=== PATIENT | female | born 1990 | race Caucasian/White ===

== ENCOUNTER → 2018-01-03 | Outpatient (CLI) | payer OTHER ==
[~2018-01-03] MED LIST: BIRTH CONTROL; Bactrim 400-801 EACH PO; Bactrim Ds Tab1 EACH PO; CEPH500 PO; IBUP800 PO; OXYACE5T PO; Pyridium200 MG PO; Zofran Odt4 MG SL
== END ==
LOC: LAB 15:31 → LAB SHORT 15:31
DX: R30.0 Dysuria (principal)
CPT/HCPCS: 87077; 87086; 87186

== ENCOUNTER → 2018-03-19 | Outpatient (CLI) | payer OTHER ==
[2018-03-22 00:11] LABS: CHLAMYDIA TRACHOMATIS, NAA Negative (Negative); NEISSERIA GONORRHOEAE, NAA Negative (Negative)
== END | disposition home or self-care (01) ==
LOC: LAB 15:08 → LAB SHORT 15:08
PROVIDERS: Obstetrics & Gynecology
DX: Z34.83 Encounter for supervision of other normal pregnancy, third trimester (principal); Z3A.35 35 weeks gestation of pregnancy
CPT/HCPCS: 87081; 87653

== ENCOUNTER → 2018-04-10 | Outpatient (CLI) | payer OTHER | END | disposition home or self-care (01) | LOC: LAB 13:27 → LAB SHORT 13:27 | DX: R30.0 Dysuria (principal) | CPT/HCPCS: 87086 ==

== ENCOUNTER 2018-04-19 03:06 | Inpatient (IN) | payer OTHER ==
[~2018-04-19] VITALS: Ht 162.6 cm; Wt 66.2 kg
[2018-04-19 06:11] LABS: BASOPHILS ABSOLUTE AUTO 0.02 K/mm3 (0.00-0.23); BASOPHILS PERCENT AUTO 0 % (0-2); EOSINOPHILS ABSOLUTE AUTO 0.06 K/mm3 (0.00-0.68); EOSINOPHILS PERCENT AUTO 1 % (0-6); Hematocrit 31.8 % (33.0-51.0); Hemoglobin 10.4 g/dL (11.5-16.0); IMMATURE GRAN PERCENT AUTO 1 % (0-1); LYMPHOCYTES ABSOLUTE AUTO 2.19 K/mm3 (0.84-5.20); LYMPHOCYTES PERCENT AUTO 18 % (21-46); MONOCYTES ABSOLUTE AUTO 0.65 K/mm3 (0.16-1.47); MONOCYTES PERCENT AUTO 5 % (4-13); Mean Corpuscular HGB 29.4 pg (26.0-34.0); Mean Corpuscular HGB Conc 32.7 g/dL (31.5-36.5); Mean Corpuscular Volume 90 fL (80-100); Mean Platelet Volume 10.3 fL (9.1-12.4); NEUTROPHILS PERCENT AUTO 75 % (41-73); Platelet Count 270 K/mm3 (150-400); RDW Coefficient Variation 12.6 % (11.7-14.2); RDW Standard Deviation 41.7 fL (35.1-46.3); Red Blood Cell Count 3.54 M/mm3 (3.80-5.20); White Blood Cell Count 12.22 K/mm3 (4.00-11.30)
[2018-04-19] MEDS ORDERED: Verotin-Gr Cap1 EACH PO (08:10)
[2018-04-20 05:07] LABS: BASOPHILS ABSOLUTE AUTO 0.03 K/mm3 (0.00-0.23); BASOPHILS PERCENT AUTO 0 % (0-2); EOSINOPHILS ABSOLUTE AUTO 0.13 K/mm3 (0.00-0.68); EOSINOPHILS PERCENT AUTO 1 % (0-6); Hemoglobin 9.7 g/dL (11.5-16.0); IMMATURE GRAN PERCENT AUTO 1 % (0-1); LYMPHOCYTES ABSOLUTE AUTO 2.98 K/mm3 (0.84-5.20); LYMPHOCYTES PERCENT AUTO 25 % (21-46); MONOCYTES ABSOLUTE AUTO 1.12 K/mm3 (0.16-1.47); MONOCYTES PERCENT AUTO 9 % (4-13); Mean Corpuscular HGB 29.8 pg (26.0-34.0); Mean Corpuscular HGB Conc 32.3 g/dL (31.5-36.5); Mean Corpuscular Volume 92 fL (80-100); Mean Platelet Volume 10.2 fL (9.1-12.4); NEUTROPHILS ABSOLUTE AUTO 7.72 K/mm3 (1.96-9.15); NEUTROPHILS PERCENT AUTO 64 % (41-73); Platelet Count 249 K/mm3 (150-400); RDW Coefficient Variation 12.9 % (11.7-14.2); RDW Standard Deviation 43.1 fL (35.1-46.3); Red Blood Cell Count 3.25 M/mm3 (3.80-5.20); White Blood Cell Count 12.08 K/mm3 (4.00-11.30)
[2018-04-20] MEDS ORDERED: DOCU100 PO (08:04)
[2018-04-20] MEDS ORDERED: IBUP800 PO (08:05)
== END 2018-04-20 13:15 | disposition home or self-care (01) | DRG 775 ==
LOC: BC 03:06 → OBS 03:06 → BC 04:45
PROVIDERS: Obstetrics & Gynecology
PROC: 10E0XZZ Delivery of Products of Conception, External Approach (ICD-10-PCS; principal; 2018-04-19)
PROC: 0HQ9XZZ Repair Perineum Skin, External Approach (ICD-10-PCS; 2018-04-19)
DX: O62.3 Precipitate labor (principal); Z3A.40 40 weeks gestation of pregnancy; Z37.0 Single live birth
CPT/HCPCS: 36415; 59025; 85025; J1885; J2210; J2590; J7120

== ENCOUNTER 2018-11-18 14:04 | Emergency (ER) | payer OTHER ==
[~2018-11-18] VITALS: Ht 162.6 cm; Wt 56.7 kg
[~2018-11-18 14:04] MED LIST changes: +DOCU100 PO; +Verotin-Gr Cap1 EACH PO
[2018-11-18 16:02] LABS: BASOPHILS ABSOLUTE AUTO 0.05 K/mm3 (0.00-0.23); BASOPHILS PERCENT AUTO 1 % (0-2); EOSINOPHILS ABSOLUTE AUTO 0.31 K/mm3 (0.00-0.68); EOSINOPHILS PERCENT AUTO 5 % (0-6); Hematocrit 45.3 % (33.0-51.0); Hemoglobin 14.7 g/dL (11.5-16.0); IMMATURE GRAN ABSOLUTE AUTO 0.02 K/mm3 (0.00-0.10); IMMATURE GRAN PERCENT AUTO 0 % (0-1); LYMPHOCYTES ABSOLUTE AUTO 2.05 K/mm3 (0.84-5.20); LYMPHOCYTES PERCENT AUTO 33 % (21-46); MONOCYTES ABSOLUTE AUTO 0.37 K/mm3 (0.16-1.47); MONOCYTES PERCENT AUTO 6 % (4-13); Mean Corpuscular HGB Conc 32.5 g/dL (31.5-36.5); Mean Corpuscular Volume 89 fL (80-100); Mean Platelet Volume 9.9 fL (9.1-12.4); NEUTROPHILS ABSOLUTE AUTO 3.39 K/mm3 (1.96-9.15); NEUTROPHILS PERCENT AUTO 55 % (41-73); Platelet Count 332 K/mm3 (150-400); RDW Coefficient Variation 12.7 % (11.7-14.2); RDW Standard Deviation 41.2 fL (35.1-46.3); Red Blood Cell Count 5.07 M/mm3 (3.80-5.20); White Blood Cell Count 6.19 K/mm3 (4.00-11.30)
[2018-11-18 16:36] LABS: International Normalized Ratio 1.03; Prothrombin Time Results 10.9 Sec (9.7-11.5)
[2018-11-18] MEDS ORDERED: Prednisone20 MG PO (16:47)
[2018-11-18] MEDS ORDERED: HYDHCL25 PO (16:47)
== END 2018-11-18 16:49 | disposition home or self-care (01) ==
LOC: ER 14:04
PROVIDERS: Physician Assistant
DX: R21 Rash and other nonspecific skin eruption (principal)
CPT/HCPCS: 36415; 85025; 85384; 85610; 85651; 99283; Q0163

== ENCOUNTER → 2019-06-19 | Outpatient (CLI) | payer OTHER ==
[~2019-06-19] MED LIST changes: +HYDHCL25 PO; +Prednisone20 MG PO
== END | disposition home or self-care (01) ==
LOC: LAB 17:36 → LAB SHORT 17:36
PROVIDERS: Obstetrics & Gynecology
DX: Z01.419 Encounter for gynecological examination (general) (routine) without abnormal findings (principal)
CPT/HCPCS: G0123

== ENCOUNTER 2020-01-03 18:06 | Emergency (ER) | payer OTHER ==
[~2020-01-03] VITALS: Ht 165.1 cm; Wt 65.8 kg
[2020-01-03] MEDS ORDERED: ALBU90OI INH (19:49)
[2020-01-03] MEDS ORDERED: AZIT500 PO (19:49)
== END 2020-01-03 20:04 | disposition home or self-care (01) ==
LOC: ER 18:06
DX: J45.909 Unspecified asthma, uncomplicated (principal)
CPT/HCPCS: 71046; 94640; 99283-25

== ENCOUNTER 2020-07-11 17:40 | Emergency (ER) | payer OTHER ==
[~2020-07-11] VITALS: Ht 162.6 cm; Wt 65.8 kg
[~2020-07-11 17:40] MED LIST changes: +ALBU90OI INH; +AZIT500 PO
[2020-07-11] MEDS ORDERED: BIRTH CONTROL (17:50)
[2020-07-11 18:42] LABS: Source, Urine Clean Catch
[2020-07-11 18:47] LABS: BASOPHILS ABSOLUTE AUTO 0.05 K/mm3 (0.00-0.23); BASOPHILS PERCENT AUTO 1 % (0-2); EOSINOPHILS ABSOLUTE AUTO 0.27 K/mm3 (0.00-0.68); EOSINOPHILS PERCENT AUTO 4 % (0-6); Hematocrit 41.3 % (33.0-51.0); Hemoglobin 13.7 g/dL (11.5-16.0); IMMATURE GRAN ABSOLUTE AUTO 0.02 K/mm3 (0.00-0.10); IMMATURE GRAN PERCENT AUTO 0 % (0-1); LYMPHOCYTES ABSOLUTE AUTO 2.64 K/mm3 (0.84-5.20); LYMPHOCYTES PERCENT AUTO 35 % (21-46); MONOCYTES ABSOLUTE AUTO 0.48 K/mm3 (0.16-1.47); MONOCYTES PERCENT AUTO 6 % (4-13); Mean Corpuscular HGB 31.4 pg (26.0-34.0); Mean Corpuscular HGB Conc 33.2 g/dL (31.5-36.5); Mean Corpuscular Volume 95 fL (80-100); Mean Platelet Volume 10.5 fL (9.1-12.4); NEUTROPHILS ABSOLUTE AUTO 4.04 K/mm3 (1.96-9.15); NEUTROPHILS PERCENT AUTO 54 % (41-73); Platelet Count 367 K/mm3 (150-400); RDW Standard Deviation 41.9 fL (35.1-46.3); Red Blood Cell Count 4.36 M/mm3 (3.80-5.20)
[2020-07-11 18:54] LABS: Bilirubin, Urine Neg (Neg); Blood, Urine 2+ (Neg); Glucose Qualitative, Urine Neg (Neg); Ketones, Urine Neg (Neg); Leukocyte Esterase, Urine 3+ (Neg); Nitrite, Urine Neg (Neg); Protein, Urine Neg (Neg); Specific Gravity, Urine 1.015 (1.003-1.022); Urobilinogen, Urine NORM (Normal)
[2020-07-11 19:01] LABS: Appearance, Urine Hazy (Clear); Color, Urine Yellow (P-Yellow)
[2020-07-11 19:02] LABS: Bacteria Many /hpf; Red Blood Cells, Urine 0-2 /hpf (0-2); Squamous Epithelial Cells Many /hpf (Few); White Blood Cells, Urine TNTC /hpf (0-5)
[2020-07-11 19:15] LABS: Alanine Aminotransfer (ALT/SGP 13 U/L (12-78); Albumin, Blood 2.9 g/dL (3.4-5.0); Albumin/Globulin Ratio 0.7 (0.8-1.8); Alk Phos 45 U/L (50-136); Anion Gap 7 mmol/L (6-16); Aspartate Aminotrans (AST/SGOT 8 U/L (12-37); Bilirubin, Total 0.4 mg/dL (0.1-1.0); Blood Urea Nitrogen 8 mg/dL (8-24); Bun/Creatinine Ratio 9.8 (12.0-20.0); CO2, Blood 24 mmol/L (21-32); Calcium, Blood 8.7 mg/dL (8.5-10.1); Chloride, Blood 110 mmol/L (98-108); Creatinine, Blood 0.81 mg/dL (0.40-1.00); Globulin, Blood 4.3 g/dL (2.2-4.0); Glomerular Filtration Rate >60 (60-); Glucose, Blood 78 mg/dL (70-99); Potassium, Blood 3.5 mmol/L (3.5-5.5); Sodium, Blood 141 mmol/L (136-145); Total Protein, Blood 7.2 g/dL (6.4-8.2)
[2020-07-11] MEDS ORDERED: Bactrim Ds Tab1 EACH PO (19:49)
== END 2020-07-11 19:55 | disposition home or self-care (01) ==
LOC: ER 17:40
PROVIDERS: Emergency Medicine
DX: N39.0 Urinary tract infection, site not specified (principal)
CPT/HCPCS: 36415; 80053; 81001; 81025; 83690; 85025; 87077; 87086; 87186; 99283; A9270-GY

== ENCOUNTER → 2022-07-18 | Outpatient (CLI) | payer OTHER ==
[2022-07-19 15:10] LABS: HPV 16 Negative (Negative); HPV 18 Negative (Negative); HPV OTHER HR TYPES Negative (Negative)
== END | disposition home or self-care (01) ==
LOC: LAB SHORT 10:40 → LAB 10:40
PROVIDERS: Obstetrics & Gynecology
DX: Z12.4 Encounter for screening for malignant neoplasm of cervix (principal)
CPT/HCPCS: 87624; G0123

== ENCOUNTER → 2024-03-27 | Outpatient (CLI) | payer OTHER | END | disposition home or self-care (01) | LOC: LAB SHORT 11:10 → LAB 11:10 | DX: J02.9 Acute pharyngitis, unspecified (principal) | CPT/HCPCS: 87081; 87147 ==